=== PATIENT | female | born 1950 | race Caucasian/White ===

== ENCOUNTER → 2016-10-11 | Outpatient (CLI) | payer OTHER ==
[2014-11-19 13:42] VITALS: BP 160/62
[~2016-10-11] MED LIST: ALPR0.5T PO; LEVO50TA5 PO; LOSA25TA4 PO
--- NOTE | 2016-10-12 16:38 | RAD ---
DATE: 10/11/2016 EXAM: DIGITAL SCREEN BILAT W/CAD HISTORY: Asymptomatic screening mammogram. COMPARISON: None available. This study was interpreted with the benefit of Computerized Aided Detection (CAD). The breast parenchyma is heterogeneously dense, which could reduce sensitivity of mammography. Breast parenchyma level C. FINDINGS: Bilateral CC and MLO views of the breasts are provided. Right breast: There is an asymmetry identified on the right MLO view in the retroareolar region. Additional views are recommended to include spot compression MLO view. No suspicious medical secretions or areas of architectural distortion. Left breast: There is a focal asymmetry in the inner lower left breast. Additional views recommended including spot compression CC and MLO views. No suspicious microcalcifications or areas of architectural distortion. IMPRESSION: 1. Incomplete right mammogram. Additional views are recommended including spot compression MLO view. 2. Incomplete left mammogram. Additional views are recommended including spot compression CC and MLO views. BI-RADS CATEGORY: 0 INCOMPLETE: NEEDS ADDITIONAL IMAGING EVALUATION AND/OR PRIOR MAMMOGRAMS FOR COMPARISON. RECOMMENDED FOLLOW-UP: ADD ADDITIONAL IMAGING PQRS compliance statement: Mammography is a sensitive method for finding small breast cancers, but it does not detect them all and is not a substitute for careful clinical examination. A negative mammogram does not negate a clinically suspicious finding and should not result in delay in biopsying a clinically suspicious abnormality. "Our facility is accredited by the [employer] Mammography Program."
== END | disposition home or self-care (01) ==
LOC: MAMMO 10:07
PROVIDERS: ATTEND Physician Assistant Medical
DX: Z12.31 Encounter for screening mammogram for malignant neoplasm of breast (principal)
CPT/HCPCS: G0202; 77067

== ENCOUNTER → 2016-10-19 | Outpatient (CLI) | payer OTHER ==
[2014-11-19 13:42] VITALS: BP 160/62
--- NOTE | 2016-10-19 10:13 | RAD ---
EXAM: DIGITAL DIAGNOSTIC BILATERAL HISTORY: Possible asymmetry on screening examination. COMPARISON: 12/09/2011 Additional spot compression views are obtained of the bilateral breasts. This study was interpreted with the benefit of Computerized Aided Detection (CAD). FINDINGS: The breast parenchyma Is heterogenously dense, which could reduce sensitivity of mammography. Breast parenchyma level III.. The regions of possible asymmetry seen in the bilateral breasts on screening examination have more of the appearance of glandular tissue on spot compression. No definite suspicious mass is seen. IMPRESSION: No definite new suspicious mass. BI-RADS CATEGORY: 1 NEGATIVE RECOMMENDED FOLLOW-UP: 12M 12 MONTH FOLLOW-UP PQRS compliance statement: Patient information was entered into a reminder system with a target due date for the next mammogram. Mammography is a sensitive method for finding small breast cancers, but it does not detect them all and is not a substitute for careful clinical examination. A negative mammogram does not negate a clinically suspicious finding and should not result in delay in biopsying a clinically suspicious abnormality. "Our facility is accredited by the [employer] Mammography [employer]."
== END | disposition home or self-care (01) ==
LOC: MAMMO 09:15
PROVIDERS: ATTEND Physician Assistant Medical
DX: R92.8 Other abnormal and inconclusive findings on diagnostic imaging of breast (principal)
CPT/HCPCS: G0204; 77066

== ENCOUNTER 2020-07-06 23:05 | Emergency (ER) | payer MEDICARE, OTHER ==
[~2020-07-06] VITALS: Ht 167.6 cm; Wt 68.0 kg
[~2020-07-06 23:05] MED LIST changes: +LOSA25TA11 PO; -LOSA25TA4 PO
[2020-07-06 23:51] LABS: BASO # 0.1 x10^3/uL (0.0-0.2); BASO % 1 % (0-3); EOS # 0.3 x10^3/uL (0.0-0.7); EOS % 5 % (0-3); HEMOGLOBIN 15.5 g/dL (12.0-15.5); LYMPH # 1.9 x10^3/uL (1.0-4.8); LYMPH % 31 % (24-48); MEAN CORPUSCULAR HEMOGLOBIN 35 pg (25-35); MEAN CORPUSCULAR HGB CONC 35 g/dL (31-37); MEAN CORPUSCULAR VOLUME 101 fL (79-100); MONO # 0.7 x10^3/uL (0.0-1.1); MONO % 10 % (0-9); NEUT # 3.3 x10^3uL (1.8-7.7); NEUT % 53 % (31-73); PLATELET COUNT 241 x10^3/uL (140-400); RED BLOOD COUNT 4.46 x10^6/uL (3.50-5.40); RED CELL DISTRIBUTION WIDTH 12.7 % (11.5-14.5); WHITE BLOOD COUNT 6.3 x10^3/uL (4.0-11.0)
[2020-07-06 23:53] LABS: CALCIUM 8.9 mg/dL (8.5-10.1); CREATININE 0.6 mg/dL (0.6-1.0); GFR 99.4; POTASSIUM 3.9 mmol/L (3.5-5.1)
[2020-07-06 23:59] LABS: ALBUMIN 3.7 g/dL (3.4-5.0); ALBUMIN/GLOBULIN RATIO 0.9 (1.0-1.7); TOTAL BILIRUBIN 0.4 mg/dL (0.2-1.0); TOTAL PROTEIN 7.9 g/dL (6.4-8.2)
--- NOTE | 2020-07-07 00:07 | RAD ---
CT HEAD/BRAIN WO History: Reason: fall / Spl. Instructions: / History: . Pain Comparison: None. Technique: Noncontrast CT imaging was performed of the head. Exposure: One or more of the following individualized dose reduction techniques were utilized for thi s examination: 1. Automated exposure control 2. Adjustment of the mA and/or kV according to patient size 3. Use of iterative reconstruction technique. Findings: No intracranial hemorrhage. No mass effect. No hydrocephalus. Mild foci of decreased attenuation within the hemispheric white matter, most often due to chronic sakina rovascular ischemia. Imaged orbits are unremarkable. Mild fluid and secretions within the left maxillary sinus. Secretions within the left sphenoid sinus. No acute calvarial fracture. Impression: 1. No acute intracranial abnormality. 2. Fluid within the left maxillary sinus, can be seen with acute sinusitis in the appropriate clinic al setting. Electronically signed by: Jean Paul Lazcano DO (07/07/2020 12:05 AM) [facility]
--- NOTE | 2020-07-07 00:48 | PHYS DOC ---
Past History Past Medical History: Anxiety, Hypertension, Hypothyroid Past Surgical History: Hysterectomy, Oophorectomy Alcohol Use: Occasionally Drug Use: None Adult General Chief Complaint Chief Complaint: WEAKNESS/GENERALIZED HPI HPI Patient is a 70-year-old female with a past medical history of anxiety and hypertension who presents to the emergency department with left lower leg weakness/wobbliness. States she has had a few episodes today where her left lower leg felt wobbly while walking. States he never had that before. States that come and go. States she called her primary care physician and was advised to come to the ED. Denies any headache, changes in vision, trouble swallowing, chest pain, shortness of breath, abdominal pain, nausea, vomiting, dysuria, hematuria or blood in the stool. Denies any numbness/weakness/tingling. Denies any urinary retention or incontinence. Is able to walk in the emergency department. Denies any recent travel, illnesses, fevers or traumas. Review of Systems Review of Systems Review of systems otherwise unremarkable except noted in HPI Allergies Allergies Allergies Coded Allergies Type Severity Reaction Last Updated Verified No Known Drug Allergies 07/06/20 No Physical Exam Physical Exam Constitutional: Well developed, well nourished, no acute distress, non-toxic appearance. [] HENT: Normocephalic, atraumatic, bilateral external ears normal, oropharynx moist, no oral exudates, nose normal. [] Eyes: PERRLA, EOMI, conjunctiva normal, no discharge. [] Neck: Normal range of motion, no tenderness, supple, no stridor. [] Cardiovascular:Heart rate regular rhythm, no murmur [] Lungs & Thorax: Bilateral breath sounds clear to auscultation [] Abdomen: soft, no tenderness, no masses, no pulsatile masses. [] Skin: Warm, dry, no erythema, no rash. [] Back: No tenderness, Extremities: No tenderness, no cyanosis, no clubbing, ROM intact, no edema. [] Neurologic: Alert and oriented X 3, normal motor function, normal sensory function, cranial nerves intact, no focal deficits noted. NIH of 0 [] Psychologic: Affect normal, judgement normal, mood normal. [] Current Patient Data Vital Signs Vital Signs Date Time Temp Pulse Resp B/P (MAP) Pulse Ox O2 Delivery O2 Flow Rate FiO2 07/06/20 23:24 98.4 68 18 166/86 (112) 97 Room Air Lab Results Laboratory Tests Test 07/06/20 23:20 White Blood Count 6.3 x10^3/uL (4.0-11.0) Red Blood Count 4.46 x10^6/uL (3.50-5.40) Hemoglobin 15.5 g/dL (12.0-15.5) Hematocrit 45.0 % (36.0-47.0) Mean Corpuscular Volume 101 fL (79-100) H Mean Corpuscular Hemoglobin 35 pg (25-35) Mean Corpuscular Hemoglobin Concent 35 g/dL (31-37) Red Cell Distribution Width 12.7 % (11.5-14.5) Platelet Count 241 x10^3/uL (140-400) Neutrophils (%) (Auto) 53 % (31-73) Lymphocytes (%) (Auto) 31 % (24-48) Monocytes (%) (Auto) 10 % (0-9) H Eosinophils (%) (Auto) 5 % (0-3) H Basophils (%) (Auto) 1 % (0-3) Neutrophils # (Auto) 3.3 x10^3uL (1.8-7.7) Lymphocytes # (Auto) 1.9 x10^3/uL (1.0-4.8) Monocytes # (Auto) 0.7 x10^3/uL (0.0-1.1) Eosinophils # (Auto) 0.3 x10^3/uL (0.0-0.7) Basophils # (Auto) 0.1 x10^3/uL (0.0-0.2) Sodium Level 132 mmol/L (136-145) L Potassium Level 3.9 mmol/L (3.5-5.1) Chloride Level 96 mmol/L (98-107) L Carbon Dioxide Level 27 mmol/L (21-32) Anion Gap 9 (6-14) Blood Urea Nitrogen 5 mg/dL (7-20) L Creatinine 0.6 mg/dL (0.6-1.0) Estimated GFR (Cockcroft-Gault) 99.4 BUN/Creatinine Ratio 8 (6-20) Glucose Level 116 mg/dL (70-99) H Calcium Level 8.9 mg/dL (8.5-10.1) Magnesium Level 2.0 mg/dL (1.8-2.4) Total Bilirubin 0.4 mg/dL (0.2-1.0) Aspartate Amino Transferase (AST) 34 U/L (15-37) Alanine Aminotransferase (ALT) 43 U/L (14-59) Alkaline Phosphatase 98 U/L (46-116) Troponin I Quantitative < 0.017 ng/mL (0-0.055) Total Protein 7.9 g/dL (6.4-8.2) Albumin 3.7 g/dL (3.4-5.0) Albumin/Globulin Ratio 0.9 (1.0-1.7) L EKG EKG [] Radiology/Procedures Radiology/Procedures [] CT HEAD/BRAIN WO History: Reason: fall / Spl. Instructions: / History: . Pain Comparison: None. Technique: Noncontrast CT imaging was performed of the head. Exposure: One or more of the following individualized dose reduction techniques were utilized for this examination: 1. Automated exposure control 2. Adjustment of the mA and/or kV according to patient size 3. Use of iterative reconstruction technique. Findings: No intracranial hemorrhage. No mass effect. No hydrocephalus. Mild foci of decreased attenuation within the hemispheric white matter, most often due to chronic microvascular ischemia. Imaged orbits are unremarkable. Mild fluid and secretions within the left maxillary sinus. Secretions within the left sphenoid sinus. No acute calvarial fracture. Impression: 1. No acute intracranial abnormality. 2. Fluid within the left maxillary sinus, can be seen with acute sinusitis in the appropriate clinical setting. Electronically signed by: Jean Paul Lazcano DO (07/07/2020 12:05 AM) [facility] Heart Score C/O Chest Pain: No Risk Factors: Risk Factors: DM, Current or recent (<one month) smoker, HTN, HLP, family history of CAD, obesity. Risk Scores: Risk Factors: DM, Current or recent (<one month) smoker, HTN, HLP, family history of CAD, obesity. Course & Med Decision Making Course & Med Decision Making Patient is a 70-year-old female who presents with left lower extremity weakness/wobbliness Vital signs notable for hypertension. Physical exam noted above. EKG noted above with no STEMI and otherwise normal. CT with no concerning findings. Laboratory analysis notable for mild hyponatremia at 132. Patient with no focal neurologic deficits, in no acute distress, cooperative and pleasant ready to go home. Discussed all findings with patient and advised on the hyponatremia, which could be contributing to symptoms but not for certain. Advised to be sure to eat plenty of foods, and fluids with electrolytes over the next several days. Advised to call primary care physician first thing in the morning to discuss ED visit and set up a follow-up as soon as possible. Gave strict return precautions to the ED. Family grateful, verbalized understanding and agreed with plan of discharge. [] Dragon Disclaimer Dragon Disclaimer This electronic medical record was generated, in whole or in part, using a voice recognition dictation system. Departure Departure: Impression: Primary Impression: Left leg weakness Additional Impression: Hyponatremia Disposition: 01 DC HOME SELF CARE/HOMELESS Condition: GOOD Referrals: NAZANIN MARTINEZ (PCP) Patient Instructions: Hyponatremia, Weakness Additional Instructions: Please read all of the attached information carefully so you can discuss this with your primary care physician. Please call your primary care physician first thing in the morning to set up a follow-up visit as soon as possible to discuss these issues. Please be sure to eat several nutritious meals a day and plenty of fluids with electrolytes. As discussed please come back to the ED with new or concerning symptoms. Problem Qualifiers ALON NICOLE MD Jul 07, 2020 00:48
[2020-07-07 00:59] VITALS: BP 138/73
--- NOTE | 2020-07-07 06:47 | EKG ---
[address] [address] Test Date: 2020-07-07 Test Time: 00:08:21 Pat Name: BRIANA MA Department: Room: Gender: F Slate Trimmer: GAMALIEL : 1950 Requested By: ALON NICOLE Order Number: [id number] Reading MD: Measurements Intervals [place]ughn Rate: 59 P: 31 WA: 180 QRS: 22 QRSD: 84 T: 52 QT: 438 QTc: 434 Interpretive Statements SINUS RHYTHM OTHERWISE NORMAL ECG RI6.02 No previous ECG available for comparison
[2020-07-12] MEDS ORDERED: ASPI325T8 PO (15:24)
[2020-07-12] MEDS ORDERED: ATOR10TA PO (15:25)
== END 2020-07-07 01:12 | disposition home or self-care (01) ==
LOC: ER 23:05
DX: R53.1 Weakness (principal); E87.1 Hypo-osmolality and hyponatremia; I10 Essential (primary) hypertension; E03.9 Hypothyroidism, unspecified; F41.9 Anxiety disorder, unspecified
CPT/HCPCS: 36415; 70450; 80053; 83735; 84484; 85025; 93005; 99285-25

== ENCOUNTER 2020-07-10 21:15 | Observation (INO) | payer MEDICARE, OTHER ==
[~2020-07-10] VITALS: Ht 167.6 cm; Wt 70.4 kg
--- NOTE | 2020-07-10 21:41 | PHYS DOC ---
Past History Past Medical History: Anxiety, Hypertension, Hypothyroid Past Surgical History: Hysterectomy, Oophorectomy Alcohol Use: Occasionally Drug Use: None General Adult EDM: Chief Complaint: NEURO SYMPTOMS/DEFICITS HPI: HPI: 62-year-old female significant history of hypertension, hypothyroidism, anxiety, who presents for the evaluation of transient left-sided weakness and paresthesia that began at rest at around 2000 this evening. The episode lasted for about 30 minutes or so, and resolved spontaneously. She was seen in the ER 3 days ago for similar symptoms, though this was isolated to the left lower extremity only. No prior history of TIA or stroke. No anticoagulant use. Denies headache, vision changes, speech changes, facial asymmetry. Review of Systems: Review of Systems: Gen: No fever, chills. Eyes: No blurred vision, diplopia. ENT: No nasal congestion, sore throat. CV: No CP, palpitations. Resp. No SOB, cough. GI: No abd pain, N/V. Neuro: No LOPEZ, dizziness. Reports transient left-sided paresthesia and weakness. MSK: No myalgia, arthralgia. Skin: No acute rash or lesion. Remainder of systems reviewed and negative unless otherwise specified. Allergies: Allergies: Allergies Coded Allergies Type Severity Reaction Last Updated Verified No Known Drug Allergies 07/06/20 No Physical Exam: PE: Gen: NAD. Well nourished. Head: NC/AT. Eyes: No scleral icterus. No conjunctival injection. PERRL. ENT: MMM. Posterior OP clear. Neck: Supple. NT. CV: RRR. Peripheral pulses intact. Resp: CTAB. Abd: Soft. NT. ND. MSK: No peripheral cyanosis. No edema. Neuro: A&Ox3. Strength & sensation grossly intact throughout. No dysmetria. No aphasia or dysarthria. No facial asymmetry. No visual field cut. No hemineglect. NIH stroke score 0. Skin. Warm. Dry. No acute rash. Psych: Appropriate mood & affect. Current Patient Data: Labs: Laboratory Tests Test 07/10/20 21:45 White Blood Count 6.5 x10^3/uL (4.0-11.0) Red Blood Count 4.23 x10^6/uL (3.50-5.40) Hemoglobin 14.8 g/dL (12.0-15.5) Hematocrit 42.4 % (36.0-47.0) Mean Corpuscular Volume 100 fL (79-100) Mean Corpuscular Hemoglobin 35 pg (25-35) Mean Corpuscular Hemoglobin Concent 35 g/dL (31-37) Red Cell Distribution Width 12.3 % (11.5-14.5) Platelet Count 223 x10^3/uL (140-400) Neutrophils (%) (Auto) 67 % (31-73) Lymphocytes (%) (Auto) 19 % (24-48) L Monocytes (%) (Auto) 10 % (0-9) H Eosinophils (%) (Auto) 3 % (0-3) Basophils (%) (Auto) 1 % (0-3) Neutrophils # (Auto) 4.3 x10^3uL (1.8-7.7) Lymphocytes # (Auto) 1.2 x10^3/uL (1.0-4.8) Monocytes # (Auto) 0.7 x10^3/uL (0.0-1.1) Eosinophils # (Auto) 0.2 x10^3/uL (0.0-0.7) Basophils # (Auto) 0.0 x10^3/uL (0.0-0.2) Sodium Level 130 mmol/L (136-145) L Potassium Level 3.7 mmol/L (3.5-5.1) Chloride Level 95 mmol/L (98-107) L Carbon Dioxide Level 24 mmol/L (21-32) Anion Gap 11 (6-14) Blood Urea Nitrogen 6 mg/dL (7-20) L Creatinine 0.7 mg/dL (0.6-1.0) Estimated GFR (Cockcroft-Gault) 83.2 Glucose Level 134 mg/dL (70-99) H Calcium Level 8.7 mg/dL (8.5-10.1) Magnesium Level 1.8 mg/dL (1.8-2.4) Vital Signs: Vital Signs Date Time Temp Pulse Resp B/P (MAP) Pulse Ox O2 Delivery O2 Flow Rate FiO2 07/10/20 21:26 97.7 66 18 133/102 (112) 96 Room Air EKG: EKG: [] Radiology/Procedures: Radiology/Procedures: STUDY: CT head without contrast INDICATION: Transient left-sided weakness/numbness. COMPARISON: 07/06/2020 TECHNIQUE: Axial CT imaging through the head without the use of intravenous contrast. Sagittal and coronal reformats were obtained. One or more of the following individualized dose reduction techniques were utilized for this examination: 1. Automated exposure control 2. Adjustment of the mA and/or kV according to patient size 3. Use of iterative reconstruction technique. FINDINGS: No acute intracranial hemorrhage. Johnston-white matter differentiation is maintained. No localized mass effect, midline shift or hydrocephalus. Redemonstrated patchy hypoattenuation within the bihemispheric subcortical white matter which is nonspecific but most frequently on account of chronic microvascular ischemic change. Redemonstrated small amount of frothy debris within the left maxillary sinus. Cerumen within the left more so than right external auditory canals. Maintained aeration of the mastoid air cells. IMPRESSION: No acute intracranial abnormality by CT. No significant change from the 07/06/2020 comparison. If there is concern for a recent ischemic event consider MRI. Electronically signed by: KANDACE RM MD (07/10/2020 10:21 PM) [facility] Heart Score: C/O Chest Pain: N/A Risk Factors: Risk Factors: DM, Current or recent (<one month) smoker, HTN, HLP, family history of CAD, obesity. Risk Scores: Score 0 - 3: 2.5% MACE over next 6 weeks - Discharge Home Score 4 - 6: 20.3% MACE over next 6 weeks - Admit for Clinical Observation Score 7 - 10: 72.7% MACE over next 6 weeks - Early Invasive Strategies Course & Med Decision Making: Course & Med Decision Making Pertinent Labs and Imaging studies reviewed. (See chart for details) In summary, 70-year-old female with history of hypertension, who presents for evaluation of a transient episode of left arm and leg weakness/paresthesia that began at rest at 1800 tonight, resolving after about 30 min or so. Presenting NIH stroke score of 0. Had a similar presentation a few days ago, though this was isolated to just the left lower extremity. No known prior history of TIA or stroke. Hemodynamically stable. Lab work is notable for redemonstration of mild hyponatremia, receiving normal saline. Noncontrast head CT is negative for acute intracranial pathology. Concern for possibility of TIA. Will be admitted for further management. Administered aspirin 81 mg prior to admission. Dragon Disclaimer: Fernando Disclaimer: This electronic medical record was generated, in whole or in part, using a voice recognition dictation system. Departure Departure: Impression: Primary Impression: Left-sided weakness Disposition: ADMITTED INPT THIS HOSP Admitting Physician: Asia Duran Condition: STABLE Referrals: NAZANIN MARTINEZ (PCP) RSOALINE REMY DO Jul 10, 2020 21:41
[2020-07-10 22:01] LABS: BASO % 1 % (0-3); EOS # 0.2 x10^3/uL (0.0-0.7); EOS % 3 % (0-3); HEMATOCRIT 42.4 % (36.0-47.0); HEMOGLOBIN 14.8 g/dL (12.0-15.5); LYMPH # 1.2 x10^3/uL (1.0-4.8); LYMPH % 19 % (24-48); MEAN CORPUSCULAR HEMOGLOBIN 35 pg (25-35); MEAN CORPUSCULAR HGB CONC 35 g/dL (31-37); MEAN CORPUSCULAR VOLUME 100 fL (79-100); MONO # 0.7 x10^3/uL (0.0-1.1); MONO % 10 % (0-9); NEUT # 4.3 x10^3uL (1.8-7.7); NEUT % 67 % (31-73); PLATELET COUNT 223 x10^3/uL (140-400); RED BLOOD COUNT 4.23 x10^6/uL (3.50-5.40); RED CELL DISTRIBUTION WIDTH 12.3 % (11.5-14.5); WHITE BLOOD COUNT 6.5 x10^3/uL (4.0-11.0)
[2020-07-10 22:04] LABS: CALCIUM 8.7 mg/dL (8.5-10.1); CREATININE 0.7 mg/dL (0.6-1.0); GFR 83.2; MAGNESIUM 1.8 mg/dL (1.8-2.4); POTASSIUM 3.7 mmol/L (3.5-5.1)
--- NOTE | 2020-07-10 22:23 | RAD ---
STUDY: CT head without contrast INDICATION: Transient left-sided weakness/numbness. COMPARISON: 07/06/2020 TECHNIQUE: Axial CT imaging through the head without the use of intravenous contrast. Sagittal and co zachary reformats were obtained. One or more of the following individualized dose reduction techniques were utilized for this examinat ion: 1. Automated exposure control 2. Adjustment of the mA and/or kV according to patient size 3. Use of iterative reconstruction technique. FINDINGS: No acute intracranial hemorrhage. Johnston-white matter differentiation is maintained. No localized mass effect, midline shift or hydrocephalus. Redemonstrated patchy hypoattenuation within the bihemispheric subcortical white matter which is nons pecific but most frequently on account of chronic microvascular ischemic change. Redemonstrated small amount of frothy debris within the left maxillary sinus. Cerumen within the left more so than right external auditory canals. Maintained aeration of the mastoid air cells. IMPRESSION: No acute intracranial abnormality by CT. No significant change from the 07/06/2020 comparison. If there is concern for a recent ischemic event consider MRI. Electronically signed by: KANDACE RM MD (07/10/2020 10:21 PM) [facility]
[2020-07-10] MEDS ORDERED: IV NORMAL SALINE 500ML 500 ML IV ONE (23:30)
[2020-07-10] MEDS ORDERED: ONDANSETRON PF 4 MG/2 ML VIAL. IVP PRN (23:30)
[2020-07-10] MEDS ORDERED: ASPIRIN CHEWABLE 81 MG TABLET. PO ONE (23:45)
[2020-07-10] MEDS ORDERED: ALPRAZolam 0.25 MG TABLET PO ONE (23:45)
[2020-07-11] VITALS (7 sets, daily range): BP systolic 88–176; BP diastolic 61–84
--- NOTE | 2020-07-11 00:27 | NUR ---
The patient, BRIANA MA, 70 y/o, F admitted by SAMI ROBLES MD, for Transient Left side weakness/Paresthesia, TIA was given written information regarding hospital policies, unit procedures and contact persons. HIPPA code given to Patient. See admission assessment/documentation. Valuables were checked and Patient stated she had 2 credit cards in purse but refused security lock up. Patient stated her daughter took her ring home with her, cell phone at bedside, no kiln charger.
--- NOTE | 2020-07-11 09:20 | NUR ---
NURSING NOTE CONSULT NEUROLOGY CONSULT CALLED TO DR DIANE. NAVJOT ENGLE.
--- NOTE | 2020-07-11 11:18 | NUR ---
NURSING NOTE CODE STATUS PT SPOKE WITH DR ROBLES AT BEDSIDE, STATES SHE WANTS TO BE DNR, DR ROBLES INFORMED/EDUCATED PT OF MEANING OF DNR. PT STATES SHE WANTS TO BE DNR. DR ROBLES TO CHANGE CODE STATUS TO DNR. NAVJOT ENGLE.
[2020-07-11] MEDS ORDERED: ALPRAZolam 0.5 MG TABLET PO PRN (11:30)
[2020-07-11] MEDS ORDERED: IOHEXOL 350 MG/ML 100 ML VIAL. IV ONE (11:45)
[2020-07-11] MEDS: LOSARTAN 25 MG TABLET. PO SCH (12:38)
[2020-07-11] MEDS: LEVOTHYROXINE 50 MCG TABLET PO SCH (12:38)
[2020-07-11] MEDS: ASPIRIN 325 MG TABLET PO SCH (12:38)
--- NOTE | 2020-07-11 13:08 | HP ---
ADMIT DATE: HISTORY OF PRESENT ILLNESS: The patient is a 70-year-old female patient who came to the Emergency Room again with complaint of weakness of her left lower extremity. She apparently had similar episode last Monday07/06/2020 that lasted about 10 minutes and resolved. She apparently has had another episode of left-sided weakness and paresthesia that had again at rest at around 10:00 in the evening. The episode lasted about 30 minutes or so and resolved spontaneously. She was seen in the ER for similar symptoms. Both episodes were isolated to the left lower extremity. The patient has never had any history of TIA or strokes before, she is not on anticoagulation. Denied any headache, blurring of vision, speech difficulty or facial asymmetry. She was extensively investigated in the Emergency Room and she was found to have hyponatremia. Her CT scan of the head showed no acute intracranial hemorrhage. Johnston-white matter differentiation is maintained. No localized mass effect, midline shift or hydrocephalus and redemonstrated also patchy hypoattenuation within the bihemispheric subcortical white matter, which is nonspecific, but most frequently on account of chronic microvascular ischemic changes, also redemonstrated small amount of frothy debris within the left maxillary sinus, cerumen within the left more so than right external auditory canal; however, the mastoid air cells are well aerated. The patient was admitted for further evaluation to consult the neurologist given that she has recurrent episodes what seems to be transient ischemic attack affecting left lower extremity. PAST MEDICAL HISTORY: Significant for hypertension, hypothyroidism as well as anxiety. PAST SURGICAL HISTORY: Significant for 2 C-sections, total abdominal hysterectomy, bilateral salpingo-oophorectomy, right-sided carpal tunnel release and thyroidectomy as well as colonoscopy. MEDICATIONS: She is currently on losartan potassium 25 mg once a day, alprazolam 0.5 mg daily, and levothyroxine 50 mcg once a day. ALLERGIES: She has no known drug allergies. FAMILY HISTORY: She has one brother who is older and apparently has osteoarthritis and underwent left total knee arthroplasty. Father at age of 45 as he was involved in a motor vehicle accident. Mother of bladder cancer at the age of 69. SOCIAL HISTORY: She is , currently lives with her boyfriend. She has two daughters. Unfortunately, she continued to smoke almost a pack a day. She drinks beer occasionally. She worked for [address] [employer] for 7 years. REVIEW OF SYSTEMS: As per history of present illness. PHYSICAL EXAMINATION: GENERAL: On arrival to the Emergency Room, she looked well and was clearly in no apparent respiratory distress. No pallor, jaundice lymphadenopathy, no thyromegaly. No jugular venous distention. No lower limb edema. VITAL SIGNS: Her heart rate was 66, blood pressure was 133/102, temperature was 97.7, respiratory rate was 18 and oxygen saturation was 96%. HEAD, EYES, EARS, NOSE AND THROAT: Showed she is normocephalic, atraumatic. NECK: Supple. HEART: Showed normal first and second heart sounds. No gallop, rub or murmur. CHEST: Clear to auscultation. No crepitation or rhonchi. ABDOMEN: Distended, soft, nontender. NEUROLOGICALLY: She is awake, alert, responding appropriately. All cranial nerves intact. EXTREMITIES: She moves extremities without difficulty as her symptom has completely resolved by the time she arrived to the Emergency Room. LABORATORY DATA: Her lab work on admission showed a white cell count of 6500, hemoglobin 14.8, hematocrit 42, MCV 100, and platelet count 223,000. Her chemistry showed a serum sodium of 130, potassium 3.7, chloride 95, bicarbonate 24, anion gap of 11, BUN 6, creatinine 0.7, estimated GFR was 83 mL per minute. Her glucose 134. Her calcium was 8.7. Her magnesium was 1.8. CT scan of the head without contrast showed that the patient has no acute intracranial abnormality by CT scan. ASSESSMENT AND PLAN: The patient was admitted and continued on all her medications and she received an aspirin on admission and we have consulted the neurologist for further evaluation and treatment. SAMI ROBLES MD DR: GINNY/shazia JOB#: [id number] / [id number]
--- NOTE | 2020-07-11 15:28 | RAD ---
STUDY: CT angiography of the head and neck INDICATION: TIA, transient left-sided weakness COMPARISON: CT head 07/10/2020 TECHNIQUE: Axial CT imaging of the head and neck utilizing angiography protocol and performed after t he intravenous administration of 100 mL Omnipaque 350 contrast. Multiplanar reformats and 3D MIP acqu isitions were obtained. Encountered areas of stenosis are measured per NASCET criteria. One or more of the following individualized dose reduction techniques were utilized for this examinat ion: 1. Automated exposure control 2. Adjustment of the mA and/or kV according to patient size 3. Use of iterative reconstruction technique. FINDINGS: CTA NECK: Arch/Proximal Great Vessels: The arch is normal configuration. There is complete occlusion of the cam[place] gin and proximal left subclavian artery over a 3.3 segment, likely chronic due to extensive calcifica tions. There is reconstitution of flow near the left vertebral artery origin, presumably by retrograd e flow from the left vertebral artery. Carotid Bifurcation/Cervical ICA: Common carotid arteries are normal in caliber with mild atheroscler osis. There are calcifications at the carotid bulbs resulting in approximately 50 percent narrowing o f the right internal carotid artery origin and 25 percent narrowing of the left internal carotid naila ry origin. The right external carotid artery origin is focally occluded but there is reconstitution j ust beyond the origin. There are calcifications in the left external carotid artery without narrowing . Vertebral Arteries: The vertebral arteries are normal in caliber and patent. CTA HEAD: Posterior Circulation: Intradural vertebral arteries are normal in caliber and patent. Mild calcifica tions in the left intradural vertebral artery. Basilar artery, superior cerebellar arteries, and post erior cerebral arteries are patent. Anterior Circulation: There are calcifications in the bilateral intracranial internal carotid arterie s without significant narrowing. The M1 segments of the middle cerebral arteries are patent. Some of the posterior ascending M2 segments of the left middle cerebral artery are small in caliber, uncertai n significance, but there is no discrete occlusion. Right middle cerebral artery branches are normal in appearance. Veins: Dural venous sinuses and jugular veins are patent. MISCELLANEOUS: No acute abnormalities in the head or neck. IMPRESSION: CT Angio Neck: 1. Chronic appearing complete occlusion of the proximal left subclavian artery with reconstitution n ear the left vertebral artery origin, likely from retrograde vertebral artery flow. 2. Approximately 50 percent narrowing of the right internal carotid artery origin and 25 percent dante rowing of the left internal carotid artery origin due to calcifications. 3. Focal occlusion of the right external carotid artery origin with reconstitution just beyond the o cclusion. CT Angio Head: 1. No large vessel occlusion. 2. Some of the ascending M2 branches of the left middle cerebral artery are small in caliber, of unce rtain significance. No discrete occlusion. Electronically signed by: Sharda Hunter MD (07/11/2020 3:26 PM) [id number]
--- NOTE | 2020-07-11 16:11 | CONS ---
DATE OF CONSULTATION: NEUROLOGY CONSULTATION REFERRING PHYSICIAN: Dr. Duran. REASON FOR CONSULTATION: Rule out TIA versus stroke. HISTORY OF PRESENT ILLNESS: This is a 70-year-old right-handed female who was admitted through Emergency Room yesterday after she presented with chief complaint of half-hour of numbness and paresthesia confined to the left upper and lower extremities, but more prominent on the left lower extremity. The patient stated that she was seen in the Emergency Room 3 days ago with the same complaints, which lasted 30 minutes confined to the left lower extremity. Initial nonenhanced head CT scan was unremarkable and repeated CT scan was performed on the day of this admission and revealed no acute intracranial process. The patient denies headaches, visual disturbances, dysarthria, dysphagia, weakness, and paresthesia at this time. She denies vertigo. Currently, the patient denies any new medical or neurological complaints. PAST MEDICAL HISTORY: Significant for hypertension, hyperlipidemia, urinary incontinence, anxiety, and hypothyroidism. Currently, the patient stated she has been under extreme anxiety because of COVID; however, she never had any COVID infection before. PAST SURGICAL HISTORY: Positive for right thumb surgery. FAMILY HISTORY: Noncontributory. CURRENT HOME MEDICATIONS: Alprazolam 0.5 mg p.r.n. for anxiety, levothyroxine 50 mcg daily, and losartan 25 mg p.o. daily. ALLERGIES: No known drug allergies. SOCIAL HISTORY: The patient is single. She smokes 1 pack of cigarettes daily. She drinks 2-3 beers occasionally. She denies any illegal drug use. REVIEW OF SYSTEMS: A 10-point review of system was performed as mentioned above in the history of present illness, otherwise unremarkable. PHYSICAL EXAMINATION: GENERAL: Well-developed, well-nourished female, not in acute distress. She weighs 71.2 kilos. VITAL SIGNS: Blood pressure 176/75, respiratory rate 18, pulse is 66 and regular, temperature 98.4, and oxygen saturation 94% on room air. HEENT: Normocephalic, atraumatic, otherwise unremarkable. NECK: Supple. Positive for right carotid bruit, otherwise unremarkable. LUNGS: Clear to A and P. CARDIOVASCULAR: Regular rate and rhythm, normal S1, S2. There is no S3, S4 or murmur. ABDOMEN: Soft. Bowel sounds positive. EXTREMITIES: Negative for cyanosis, clubbing, or pedal edema. NEUROLOGICAL EXAM: Mental Status: The patient is alert and oriented x 3. Speech is fluent. There is no language dysfunction. Memory, judgment, and abstracting thinking are normal. The patient denies hallucination or delusion. Cranial nerves: Visual ferrer are full. The pupils are reactive to light and accommodation. The extraocular movements are intact. There is no nystagmus. There are no facial motor or sensory deficits. Hearing is intact bilaterally. The palate is elevated symmetrically. Sternocleidomastoid muscles are powerful bilaterally. The patient shrugs her shoulders symmetrically, protrudes her tongue in the midline without fasciculation or atrophy. Motor: No focal muscle bulk was seen. The tone is normal. The strength is 5/5 throughout. Sensory: Revealed normal pinprick, light touch, vibratory and position senses. Deep tendon reflexes: Symmetric and active with absent Achilles responses. Gait and coordination are normal. LABORATORY DATA: CBC revealed white blood cells of 6.5 thousand, hemoglobin 14.8, hematocrit 42.4, and platelet count 223,000. Chemistry revealed sodium 130, potassium 3.7, chloride 95, CO2 of 24, BUN 6, creatinine 0.7, glucose 134, calcium 8.7 and magnesium 1.8. DIAGNOSTIC DATA: Head CT scan as mentioned above in the history of present illness, otherwise unremarkable. IMPRESSION: 1. Possible transient ischemic attack, as the patient presented with the same chief complaints of numbness and paresthesia of the left lower extremity within 3 days; however, initial nonenhanced CT scan revealed no evidence of acute intracranial process. The patient is at high risk of transient ischemic attack because of history of hypertension, smoking, hyperlipidemia, and age and recurrent neurological symptoms within a week. 2. Multiple medical problems include hypertension, hyperlipidemia, urinary incontinence, and mild hyponatremia. RECOMMENDATIONS: 1. Change aspirin to 325 mg p[address] daily. [address]. [address] angio of the head and neck today. 3. Treat the underlying hypertension and correct hyponatremia slowly. M Monika DIANE MD DR: CHRIS/shazia JOB#: [id number] / [id number]
--- NOTE | 2020-07-11 17:08 | PN ---
DATE: 07/11/2020 SUBJECTIVE: The patient was admitted yesterday with an episode of numbness and weakness in her left leg that has lasted longer for about 30 minutes compared to a similar episode last Monday, ____. Both of them have resolved spontaneously without any residual effect. She was admitted and had a CT scan done of the head without contrast, was unremarkable. All her chemistries seemed to be unremarkable. PHYSICAL EXAMINATION: GENERAL: When I examined her this morning, she looked well and was clearly in no apparent respiratory distress. There is no pallor, jaundice, cyanosis or thyromegaly. No jugular venous distention. No limb edema. VITAL SIGNS: Her heart rate was 66, blood pressure was 176/75, temperature was 98.4, respiratory rate was 18 and oxygen saturation was 94% on room air. HEENT: Showed normocephalic, atraumatic. NECK: Supple with bruit on the right carotid artery; however, there is no lymphadenopathy or thyromegaly. No jugular venous distention. HEART: Showed normal first and second heart sounds. No gallop or murmur. CHEST: Clear to auscultation. No crepitation or rhonchi. ABDOMEN: Scaphoid, soft, nontender. NEUROLOGIC: She was grossly intact. She has no lab work done this morning. We did consult Dr. Miranda, who recommended arranging for a CT angio of the neck and head as she has bruit on the right side that might have significant stenosis. I also had lengthy discussion with her about the merit of discontinuing smoking, as a high risk for atherosclerotic heart disease and atherosclerosis in general. SAMI ROBLES MD DR: GINNY/shazia JOB#: [id number] / [id number]
[2020-07-12] MEDS: LEVOTHYROXINE 50 MCG TABLET PO SCH (05:34)
[2020-07-12 05:51] VITALS: BP 98/64
[2020-07-12 08:06] LABS: HEMATOCRIT 44.3 % (36.0-47.0); HEMOGLOBIN 14.9 g/dL (12.0-15.5); RED BLOOD COUNT 4.37 x10^6/uL (3.50-5.40); RED CELL DISTRIBUTION WIDTH 12.4 % (11.5-14.5); WHITE BLOOD COUNT 5.3 x10^3/uL (4.0-11.0)
[2020-07-12] MEDS: ASPIRIN 325 MG TABLET PO SCH (08:07)
[2020-07-12] MEDS: LOSARTAN 25 MG TABLET. PO SCH (08:08)
[2020-07-12 08:21] LABS: ALBUMIN 3.4 g/dL (3.4-5.0); ALBUMIN/GLOBULIN RATIO 0.9 (1.0-1.7); CREATININE 0.7 mg/dL (0.6-1.0); GFR 83.2; POTASSIUM 3.8 mmol/L (3.5-5.1); TOTAL BILIRUBIN 0.5 mg/dL (0.2-1.0)
[2020-07-12 10:58] VITALS: BP 138/76
--- NOTE | 2020-07-12 13:13 | PN ---
DATE: SUBJECTIVE: The patient denies any new medical or neurological complaints. A CT angio of the neck and head consistent with atherosclerotic changes confined to complete occlusion of the proximal left subclavian arteries with reconstructions near the left vertebral artery origin, 50% narrowing of the right internal carotid artery at origin and 25% narrowing of the left internal carotid artery due to calcification, otherwise unremarkable angio CT of the head. Laboratory data today consistent with normal lipid profile with elevated HDL. OBJECTIVE: GENERAL: Well-developed, well-nourished female, not in acute distress. VITAL SIGNS: Stable, blood pressure 113/70, respiratory rate 20, pulse is 57, oxygen saturation is 95% on room air, and temperature is 97.5. HEENT: Normocephalic, atraumatic, otherwise unremarkable. NECK: Supple. Negative for lymphadenopathy. Positive for moderate carotid bruit on the right side consistent with narrowing of the internal carotid artery. LUNGS: Clear to A and P. CARDIOVASCULAR: Regular rate and rhythm, normal S1, S2. ABDOMEN: Soft. Bowel sounds positive. EXTREMITIES: Negative for cyanosis, clubbing or edema. NEUROLOGICAL EXAM: Normal mental status and intact cranial nerves. There is no evidence of focal motor or sensory deficits. Deep tendon reflexes were symmetric and hypoactive with absent Achilles responses. Gait and coordination are normal. LABORATORY DATA: CBC revealed white blood cells of 5.3 thousand, hemoglobin 14.9, hematocrit 34, platelet count 207. Chemistry revealed a sodium of 138, potassium 3.8, chloride 103, CO2 of 26, BUN 9, creatinine 0.7, glucose 93. Lipid profile is normal with elevated HDL. IMPRESSION: Transient ischemic attack presented with 2 recurrent events consistent with numbness and paresthesia of the lower extremities, more prominent on the left side. The patient at high risk of recurrent transient ischemic attack and stroke including chronic tobacco smoking and history of hypertension. RECOMMENDATIONS: 1. Continue with aspirin 325 mg p.o. daily. 2. Smoking cessation. 3. Follow up with Dr. Diane on an outpatient basis as needed. M Monika DIANE MD DR: CHRIS/shazia JOB#: [id number] / [id number]
[2020-07-12 14:51] VITALS: BP 176/76
[2020-07-12] MEDS ORDERED: ASPI325T8 PO (15:24)
[2020-07-12] MEDS ORDERED: ATOR10TA PO (15:25)
--- NOTE | 2020-07-12 16:23 | NUR ---
DISCHARGE NOTE Pt discharged today by Dr. Duran. Pt verbalized understanding of discharge instructions and all questions addressed. Pt ambulated out of hospital, VSS and GCS 15. Pt escorted by family member home. CC,RN
--- NOTE | 2020-07-12 19:13 | DS ---
DATE OF DISCHARGE: 07/12/2020 HOSPITAL COURSE: The patient is a 70-year-old female patient who presented with 2 episodes of tingling, numbness and weakness of the left lower extremity; first one lasted about 10 minutes and second lasted about 30 minutes. All her symptoms have resolved. She has had a CT scan of the head that basically showed no acute intracranial abnormality and no significant change from another CT scan of the head done on 07/06/2020. She did have CT angio of the head and neck, which basically showed a chronic-appearing complete occlusion of the proximal left subclavian artery with constitution near the left vertebral artery origin, likely from retrograde vertebral artery flow. She has approximately 50% narrowing of the right internal carotid artery origin and 25% narrowing of the left internal carotid artery origin due to calcification, three focal occlusions of the right external carotid artery origin with reconstitution just beyond the occlusion. We did a fasting lipid profile and her serum triglycerides were 50, total cholesterol 156, LDL was 74, VLDL was 10, and HDL cholesterol 72 and the ratio was 2. The patient was seen by the neurologist and basically the patient was advised to continue on aspirin and to quit smoking and to follow with him at his clinic in 2 weeks' time. PHYSICAL EXAMINATION: GENERAL: When I saw her this afternoon, she looked well and was clearly in no apparent respiratory distress. No pallor, jaundice, cyanosis or thyromegaly. No jugular venous distention or limb edema. VITAL SIGNS: Her heart rate was 80, blood pressure was 176/76, temperature was 97.4, respiratory rate 20, and oxygen saturation was 96%. HEAD, EYES, EARS, NOSE AND THROAT: Showed normocephalic, atraumatic. NECK: Supple. HEART: Showed normal first and second heart sounds. No gallop or murmur. CHEST: Clear to auscultation. No crepitation or rhonchi. ABDOMEN: Distended, soft, nontender. NEUROLOGICALLY: She is grossly intact. LABORATORY DATA: Her lab work this morning showed a serum sodium of 138, potassium 3.8, chloride 103, bicarbonate 26, anion gap of 9, BUN 9, creatinine 0.7, estimated GFR was 83 mL per minute. Her glucose was 93, calcium was 9. Total bilirubin, AST, ALT, alkaline phosphatase were normal. Total protein 7, albumin 3.4. Her white cell count of 5300, hemoglobin 14, hematocrit 44, MCV 101, and platelet count of 207,000. DISCHARGE MEDICATIONS: She was discharged home to continue on aspirin 325 mg daily, atorvastatin calcium 10 mg at bedtime, alprazolam 0.5 mg daily, levothyroxine 50 mcg once a day and losartan potassium 25 mg daily. FINAL DISCHARGE DIAGNOSES: 1. Transient ischemic attack. 2. 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 SAMI ROBLES MD DR: GINNY/shazia JOB#: [id number] / [id number]
== END 2020-07-12 16:00 | disposition home or self-care (01) ==
LOC: ER 21:15 → 1 SOUTH 23:18
PROVIDERS: ADMIT Internal Medicine; ATTEND Internal Medicine
DX: G45.9 Transient cerebral ischemic attack, unspecified (principal); I77.1 Stricture of artery; I10 Essential (primary) hypertension; E03.9 Hypothyroidism, unspecified; F41.9 Anxiety disorder, unspecified; E87.1 Hypo-osmolality and hyponatremia; E78.5 Hyperlipidemia, unspecified; R32 Unspecified urinary incontinence; I70.8 Atherosclerosis of other arteries; F17.210 Nicotine dependence, cigarettes, uncomplicated; Z90.710 Acquired absence of both cervix and uterus; Z98.891 History of uterine scar from previous surgery; Z90.722 Acquired absence of ovaries, bilateral; Z98.890 Other specified postprocedural states; Z79.82 Long term (current) use of aspirin
CPT/HCPCS: 36415; 70450; 70496; 70498; 80048; 80053; 80061; 83735; 85025; 85027; 96360; 99284; G0378; J7040; G0379

== ENCOUNTER → 2020-07-13 | Outpatient (CLI) | payer MEDICARE, OTHER ==
[2020-07-12 14:51] VITALS: BP 176/76
[~2020-07-13] MED LIST changes: +ASPI325T8 PO; +ATOR10TA PO
--- NOTE | 2020-07-14 09:34 | RAD ---
XR LUMBAR SPINE 4+V History: Reason: BACK PAIN, LEFT LEG NUMBNESS, RECENT FALLS / Spl. Instructions: / History: Technique: 5 views lumbar spine. Comparison: None. Findings: Normal vertebral body height and alignment. Multilevel degenerative disc changes most prominent moder ate L5-S1. Lower lumbar facet arthropathy. Vascular calcifications. Impression: 1. Multilevel lumbar spondylosis most prominent L5-S1. Electronically signed by: Jean Paul Lazcano DO (07/14/2020 9:31 AM) [id number]
== END ==
LOC: RAD 14:42
PROVIDERS: ATTEND Physician Assistant Medical
DX: M47.817 Spondylosis without myelopathy or radiculopathy, lumbosacral region (principal); M51.37 Other intervertebral disc degeneration, lumbosacral region
CPT/HCPCS: 72110